=== PATIENT | female | born 2005 | race Caucasian/White ===

== ENCOUNTER 2024-02-23 20:24 | Emergency (ER) | payer SELFPAY ==
[2024-02-23 20:28] VITALS: BP 137/92
[2024-02-23 21:54] LABS: % Basophils 0.4 % (0-2); % Eosinophils 0.2 % (0-6); % Immature Granulocytes 0.5 % (0-0.5); % Lymphocytes 20.3 % (20.5-51.1); % Monocytes 6.3 % (1.7-9.3); % Neutrophils 72.3 % (42.2-75.2); Absolute Lymphocytes 1.7 10^3/uL (1.2-3.4); Absolute Monocytes 0.5 10^3/uL (0.1-0.6); Hematocrit 41.4 % (37.0-47.0); Hemoglobin 13.8 g/dL (12.0-16.0); Mean Corp Hgb Conc. 33.3 g/dL (33.0-37.0); Mean Corpuscular Hgb 27.7 pg (27.0-31.0); Mean Corpuscular Volume 83.1 fL (81.0-99.0); Mean Platelet Volume 8.7 fL (7.4-10.4); Nucleated Red Blood Cells % 0 %; Platelet Count 333 10^3/uL (130-400); Red Blood Cell Count 4.98 10^6/uL (4.20-5.40); Red Cell Dist. Width 14.7 % (11.5-14.5); White Blood Cell Count 8.2 10^3/uL (4.8-10.8)
[2024-02-23 22:06] LABS: Amphetamines Negative (Negative); Barbiturates Negative (Negative); Benzodiazepines Negative (Negative); Buprenorphine Negative (Negative); Cocaine Negative (Negative); Marijuana Negative (Negative); Methadone Negative (Negative); Methamphetamines Negative (Negative); Opiates Negative (Negative); Phencyclidine Negative (Negative); Tricyclic Antidepressants Negative (Negative)
[2024-02-23 22:11] LABS: Chloride 104 mmol/L (98-107); Potassium 3.7 mmol/L (3.5-5.1); Sodium 139 mmol/L (135-145)
[2024-02-23 22:14] LABS: ALT (SGPT) 16 U/L (0-35); AST (SGOT) 25 U/L (14-36); Acetaminophen < 10 ug/ml (10-30); Alkaline Phosphatase 68 U/L (38-126); Blood Urea Nitrogen 11 mg/dl (7-17); Calcium 10.4 mg/dl (8.4-10.2); Carbon Dioxide 22 mmol/L (22-30); Glucose 95 mg/dl (70-99); HCG, Serum Qualitative Screen Negative; Salicylate < 1.0 mg/dl (2.0-20.0); Total Protein 7.8 g/dl (6.3-8.2); eGFR > 60.00
[2024-02-23 22:18] LABS: Alcohol None Detected
[2024-02-23 22:35] LABS: Urine Albumin Trace (Neg - Trace); Urine Bilirubin Negative (Negative); Urine Character Slightly Cloudy (Clear); Urine Color Amber; Urine Glucose Negative (Negative); Urine Ketone 2+ (Negative); Urine Leukocyte Negative (Negative); Urine Nitrite Negative (Negative); Urine Occult Blood Negative (Negative); Urine Specific Gravity 1.025 (<1.030); Urine Urobilinogen Negative (Neg - 1+)
[2024-02-23 22:38] LABS: TSH Reflex To Free T4 2.26 uIU/ml (0.47-4.68)
[2024-02-23] MEDS: ATIVAN 1 MG IV (22:53)
--- NOTE | 2024-02-24 00:59 | ED.GENMED ---
History of Present Illness
General
Chief Complaint: Crisis Evaluation
Source: patient
Exam Limitations: none
Time Seen by Provider: 02/23/24 20:37
Nursing documentation reviewed up to this point in time: agreed with
History of Present Illness
History of Present Illness:
Patient presents to ED for evaluation secondary to increased anxiety along with erratic thoughts and behavior, per parent. Patient is currently in college and has not been sleeping well, along with alcohol intake. Patient denies any illicit
medications. Denies recent illness. Denies any pain. Patient is tearful during evaluation, and does not offer any additional information.
Review of Systems
Review of Systems
Allergies reviewed?: Yes
Unable to obtain full review of systems at this time due to: other (Tangential thought process)
All Other Systems: Not applicable
Phy Exam
Physical Exam
Physical Exam:
Physical Exam
General: mild distress, not acutely ill. afebrile. anxious appearing
Head: nc/at. eomi
Neck: supple. normal range of motion.
Heart: tachycardic, no murmur. equal radial pulses.
Lungs: no acute respiratory distress. clear bilaterally
Abdomen: normal bowel sounds. not tender.
Neuro: alert and oriented. no focal neurological deficits
Skin: no rash
Psychiatric: anxious with tangential thought process. hard to re-direct. tearful
Extremities: no edema. no calf tenderness.
Course
Orders/Labs/Results
Orders:
Orders
02/23/24 20:37
Crisis Consult Urgent
Reason for Consult: bizzare behavior
02/23/24 21:35
IV Insert/Care/Rem.- Treatment PRN
Test Result ONCE
02/23/24 21:45
Acetaminophen Urgent
Alcohol Urgent
Complete Blood Count/With Diff Urgent
Comprehensive Metabolic Panel Urgent
HCG, Serum Qualitative Screen Urgent
Comment: Notify provider if positive test present
Salicylate Urgent
TSH Reflex To Free T4 Urgent
Urinalysis Reflex To Culture Urgent
Date Specimen was Collected: 02/23/24
Time Specimen was Collected: 21:35
Urine Drug Abuse Screen Urgent
Date Specimen was Collected: 02/23/24
Time Specimen was Collected: 21:35
02/23/24 22:16
CT Head W/o Iv Contrast Urgent
Comment:
Reason For Exam: mental status change
02/23/24 22:47
Lorazepam [Ativan] 2 mg .ROUTE .STK-MED ONE
02/23/24 22:48
Lorazepam [Ativan] 1 mg IV NOW STA
02/23/24 22:49
0.9% Sodium Chloride 1000 ml [Nss] 1,000 ml IV BOLUS
Abnormal Lab Results
02/23/24
21:45
RDW 14.7 H %
(11.5-14.5)
Lymphocytes % 20.3 L %
(20.5-51.1)
Calcium 10.4 H mg/dl
(8.4-10.2)
Urine Ketones 2+ A
(Negative)
Salicylates < 1.0 L mg/dl
(2.0-20.0)
Acetaminophen < 10 L ug/ml
(10-30)
02/23/24 21:45
02/23/24 21:45
Vital Signs
Initial and Last Documented VS:
Initial Vital Signs
Temp Pulse Resp BP Pulse Ox
98.2 F 132 18 137/92 99
02/23/24 20:28 02/23/24 20:28 02/23/24 20:28 02/23/24 20:28 02/23/24 20:28
Last Documented Vital Signs
Temp Pulse Resp BP Pulse Ox
98.2 F 87 12 128/84 99
02/24/24 08:07 02/24/24 08:07 02/24/24 08:07 02/24/24 08:07 02/24/24 08:07
MDM/Problems Addressed
MDM/Problems Addressed:
Per parent, there is strong family history of history of bipolar disorder and schizophrenia. Patient's presenting symptoms concerning for potential first outbreak of possible underlying schizophrenia versus bipolar disorder, triggered by increased
stress level at school. Otherwise, patient is afebrile, hemodynamically stable, and neurologically intact. Patient is medically cleared and will be transition to inpatient psychiatric facility for further evaluation and treatment.
Back up 302 available, as completed by jaclyn alves.
*Critical Care Note
Total Time (30-74mins, 75-104mins- exclusive of procedures): Not Applicable
ED Attending Note
-
Portions of this chart may have been created with voice recognition software.� Occasional wrong word or��sound alike� substitutions may have occurred due to the inherent limitations of voice recognition software.
Discharge Plan
Departure
Patient Disposition: Psych Facility
Date of Disposition: 02/24/24
Time of Disposition: 01:30
Discharge Problem:
Psychosis
Referrals:
UNKNOWN - PT DOES,NOT KNOW [Family Provider] -
Interventions
Interventions:
*Risk Screen - Suicide Last Done: 02/23/24 20:28
*General Assessment Last Done: 02/23/24 20:28
*Neglect/Abuse Screening Last Done: 02/23/24 21:54
ED- Fall Risk Assessment Last Done: 02/23/24 21:54
*ED COVID-19 Vaccine History Last Done: 02/23/24 20:28
*Nursing Disposition Last Done: 02/24/24 09:49
ED-Psychological Assessment Last Done: 02/23/24 21:53
Discharge Date and Time
Discharge Date/Time: 02/24/24 09:50
Print Language: CITIZEN [place]
[2024-02-24 08:07] VITALS: BP 128/84
== END 2024-02-24 09:50 ==
LOC: EMR 20:24
PROVIDERS: EMERGENCY PHYSICIAN Emergency Medicine
DX: F29 Unspecified psychosis not due to a substance or known physiological condition (principal); F41.9 Anxiety disorder, unspecified
CPT/HCPCS: 99285; 96374; 70450; 80053; 80143; 80179; 80306; 81003; 82077; 84443; 84703; 85025